=== PATIENT | female | born 1950 | race African-American/Black ===

== ENCOUNTER 2017-01-01 16:09 | Emergency (ER) | payer MEDICARE, OTHER ==
[~2017-01-01] VITALS: Ht 162.6 cm; Wt 54.0 kg
[~2017-01-01 16:09] MED LIST: LISI10TA3 PO
[2017-01-01 16:20] VITALS: BP 175/91; PULSE 70; RESP 16; TEMP 98.3
--- NOTE | 2017-01-01 16:30 | PD ---
HPI . Nosebleed Chief Complaint: Nosebleed Time Seen by Provider: 16:25 Travel History International Travel<30 days: No Contact w/Intl Traveler<30days: No History of Present Illness HPI Patient presents with epistaxis. Onset was last night. It spontaneously stopped but then recurred today. She called 911 and was brought here. The bleeding has stopped in route. The patient reports that she has no idea why it was bleeding. Take that she has a little bit of a cold. PFSH Social History Tobacco Use: No Allergies-Medications (Allergen,Severity, Reaction): Coded Allergies: No Known Allergies (Unverified , 12/11/16) Reported Meds & Prescriptions Reported Meds & Active Scripts Active Lisinopril 10 Mg Tab 10 Mg PO DAILY Review of Systems Except as stated in HPI: all other systems reviewed are Neg HENT: Positive: Rhinorrhea, Congestion, Nosebleed Physical Exam Narrative GENERAL: Awake and alert and in no acute distress. SKIN: Warm and dry. HEAD: Atraumatic. Normocephalic. EYES: Pupils equal and round. ENT: She has some edema of her nasal turbinates. She has some recent bleeding from the left naris bleeding is currently controlled. NECK: Trachea midline. CARDIOVASCULAR: Regular rate and rhythm. RESPIRATORY: No accessory muscle use. MUSCULOSKELETAL: No obvious deformities. No edema. NEUROLOGICAL: Awake and alert. No obvious cranial nerve deficits. Motor grossly within normal limits. Normal speech. PSYCHIATRIC: Appropriate mood and affect; insight and judgment normal. MDM Medical Decision Making Medical Screen Exam Complete: Yes Emergency Medical Condition: Yes Differential Diagnosis Differential diagnosis includes but is not limited to epistaxis due to an upper respiratory infection, coagulopathy, local trauma, nasal fracture Narrative Course This patient presents with epistaxis. The epistaxis has now stopped. She will be discharged home with instructions to use Afrin nose spray for the next few days. Diagnosis Primary Impression: Epistaxis Additional Instructions: Afrin, 2 sprays in each nostril twice a day for the next 3 days. Disposition: 01 DISCHARGE HOME Condition: Stable Roxanne Grant MD Jan 01, 2017 16:29
[2017-01-08] MEDS ORDERED: SUMA25TA2 PO (10:53)
== END 2017-01-01 17:03 | disposition home or self-care (01) ==
LOC: NEPD 16:09
DX: R04.0 Epistaxis (principal)
CPT/HCPCS: 99283